=== PATIENT | female | born 1940 | race Caucasian/White ===

== ENCOUNTER 2017-06-16 17:39 | Emergency (ER) | payer MEDICARE, OTHER ==
[~2017-06-16] VITALS: Ht 165.1 cm; Wt 70.3 kg
[~2017-06-16 17:39] MED LIST: ATOR10 PO; BENAML10/40; DAILY MULTIPLE1 EACH; ELLURA200 MG; FIBER CHOICE; HYDCHL25; LOTREL; METF500; NEBI10; NITR100CA PO; Percocet 5-3251 EACH PO
[2017-06-16] MEDS ORDERED: ELIQUIS5 MG PO (18:02)
[2017-06-16] MEDS ORDERED: OMEPRAZOLE DR 40 MG (18:02)
[2017-06-16] MEDS ORDERED: DILT120 (18:02)
[2017-06-16] MEDS ORDERED: ATOR10 (18:02)
[2017-06-16] MEDS ORDERED: HYDCHL25 PO (18:03)
[2017-06-16] MEDS ORDERED: Flovent Disku100 MCG (18:03)
[2017-06-16] MEDS ORDERED: NEBI10 (18:03)
[2017-06-16 18:16] LABS: BASOPHILS ABSOLUTE AUTO 0.04 K/mm3 (0.00-0.23); BASOPHILS PERCENT AUTO 1 % (0-2); EOSINOPHILS ABSOLUTE AUTO 0.13 K/mm3 (0.00-0.68); EOSINOPHILS PERCENT AUTO 2 % (0-6); Hematocrit 44.3 % (33.0-51.0); Hemoglobin 14.9 g/dL (11.5-16.0); IMMATURE GRAN ABSOLUTE AUTO 0.02 K/mm3 (0.00-0.10); IMMATURE GRAN PERCENT AUTO 0 % (0-1); LYMPHOCYTES ABSOLUTE AUTO 2.29 K/mm3 (0.84-5.20); LYMPHOCYTES PERCENT AUTO 27 % (21-46); MONOCYTES ABSOLUTE AUTO 0.91 K/mm3 (0.16-1.47); MONOCYTES PERCENT AUTO 11 % (4-13); Mean Corpuscular HGB 29.5 pg (26.0-34.0); Mean Corpuscular HGB Conc 33.6 g/dL (31.5-36.5); Mean Corpuscular Volume 88 fL (80-100); Mean Platelet Volume 9.1 fL (9.1-12.4); NEUTROPHILS ABSOLUTE AUTO 5.07 K/mm3 (1.96-9.15); NEUTROPHILS PERCENT AUTO 60 % (41-73); Platelet Count 382 K/mm3 (150-400); RDW Coefficient Variation 13.7 % (11.7-14.2); RDW Standard Deviation 44.4 fL (35.1-46.3); Red Blood Cell Count 5.05 M/mm3 (3.80-5.20); White Blood Cell Count 8.46 K/mm3 (4.00-11.30)
[2017-06-16 18:32] LABS: Alanine Aminotransfer (ALT/SGP 48 U/L (12-78); Albumin, Blood 3.6 g/dL (3.4-5.0); Albumin/Globulin Ratio 0.7 (0.8-1.8); Alk Phos 117 U/L (50-136); Anion Gap 11 mmol/L (6-16); Aspartate Aminotrans (AST/SGOT 64 U/L (12-37); Bilirubin, Total 1.3 mg/dL (0.1-1.0); Blood Urea Nitrogen 12 mg/dL (8-24); Bun/Creatinine Ratio 15.1 (12.0-20.0); CO2, Blood 26 mmol/L (21-32); Calcium, Blood 9.2 mg/dL (8.5-10.1); Chloride, Blood 97 mmol/L (98-108); Creatinine, Blood 0.79 mg/dL (0.40-1.00); Globulin, Blood 5.3 g/dL (2.2-4.0); Glomerular Filtration Rate >60 (60-); Glucose, Blood 144 mg/dL (70-99); Potassium, Blood 3.7 mmol/L (3.5-5.5); Sodium, Blood 134 mmol/L (136-145); Total Protein, Blood 8.9 g/dL (6.4-8.2); Troponin I <0.015 ng/mL (0.000-0.040)
[2017-06-16] MEDS ORDERED: Guaifenesin-Co118 ML PO (19:11)
== END 2017-06-16 19:37 | disposition home or self-care (01) ==
LOC: ER 17:39
PROVIDERS: Emergency Medicine
DX: I48.91 Unspecified atrial fibrillation (principal); J06.9 Acute upper respiratory infection, unspecified; Z88.0 Allergy status to penicillin; Z88.1 Allergy status to other antibiotic agents; Z88.8 Allergy status to other drugs, medicaments and biological substances; Z79.899 Other long term (current) drug therapy; Z79.84 Long term (current) use of oral hypoglycemic drugs; E11.9 Type 2 diabetes mellitus without complications; I10 Essential (primary) hypertension
CPT/HCPCS: 71046; 80053; 84484; 85025; 93005; 93010; 96361; 96374; 99283; J7030

== ENCOUNTER → 2017-07-22 | Outpatient (CLI) | payer MEDICARE, OTHER ==
[~2017-07-22] MED LIST changes: +ATOR10; +DILT120; +ELIQUIS5 MG PO; +Flovent Disku100 MCG; +Guaifenesin-Co118 ML PO; +HYDCHL25 PO; +NITR100 PO; +OMEPRAZOLE DR 40 MG
== END | disposition home or self-care (01) ==
LOC: PLD 07:43 → LAB SHORT 07:43
DX: L57.0 Actinic keratosis (principal)
CPT/HCPCS: 88305

== ENCOUNTER → 2017-09-09 | Outpatient (CLI) | payer MEDICARE, OTHER ==
[~2017-09-09] MED LIST changes: -NITR100 PO
== END | disposition home or self-care (01) ==
LOC: LAB SHORT 12:15 → PLD 12:15
DX: R23.4 Changes in skin texture (principal)
CPT/HCPCS: 88305

== ENCOUNTER → 2017-09-23 | Outpatient (CLI) | payer MEDICARE, OTHER | END | disposition home or self-care (01) | LOC: PLD 13:38 → LAB SHORT 13:38 | DX: C44.622 Squamous cell carcinoma of skin of right upper limb, including shoulder (principal) | CPT/HCPCS: 88305 ==

== ENCOUNTER 2017-10-05 16:57 | Emergency (ER) | payer MEDICARE, OTHER ==
[~2017-10-05] VITALS: Ht 165.1 cm; Wt 71.2 kg
[2017-10-05] MEDS ORDERED: NITR100 PO (17:26)
[2017-10-05] MEDS ORDERED: ELLURA200 MG (17:27)
[2017-10-05 18:09] LABS: Source, Urine Voided
[2017-10-05 18:29] LABS: Appearance, Urine Hazy (Clear); Blood, Urine 2+ (Neg); Color, Urine Amber (P-Yellow); Glucose Qualitative, Urine Neg (Neg); Ketones, Urine Neg (Neg); Leukocyte Esterase, Urine 2+ (Neg); Nitrite, Urine Neg (Neg); Protein, Urine 2+ (Neg); Urobilinogen, Urine 3+ (Normal)
[2017-10-05 18:57] LABS: Bilirubin, Urine 2+ (Neg)
[2017-10-05 18:58] LABS: Amorphous Light (0-Heavy); Bacteria Mod /hpf; Hyaline Casts 0-2 /lpf (0-2); Squamous Epithelial Cells Few /hpf (Few)
[2017-10-05 18:59] LABS: Triple Phosphate Crystals Few /hpf
== END 2017-10-05 18:21 | disposition home or self-care (01) ==
LOC: ER 16:57
PROVIDERS: Emergency Medicine
DX: K59.09 Other constipation (principal); R31.9 Hematuria, unspecified; I10 Essential (primary) hypertension; E11.9 Type 2 diabetes mellitus without complications; I48.91 Unspecified atrial fibrillation; Z88.0 Allergy status to penicillin; Z88.1 Allergy status to other antibiotic agents; Z88.8 Allergy status to other drugs, medicaments and biological substances; Z79.899 Other long term (current) drug therapy; Z79.84 Long term (current) use of oral hypoglycemic drugs
CPT/HCPCS: 81001; 87086; 99283

== ENCOUNTER → 2017-10-09 | Outpatient (CLI) | payer MEDICARE, OTHER ==
[~2017-10-09] MED LIST changes: +NITR100 PO
== END | disposition home or self-care (01) ==
LOC: PLD 13:57 → LAB SHORT 13:57
DX: C44.622 Squamous cell carcinoma of skin of right upper limb, including shoulder (principal)
CPT/HCPCS: 88305

== ENCOUNTER → 2018-07-17 | Outpatient (CLI) | payer MEDICARE, OTHER | END | disposition home or self-care (01) | LOC: PLD 08:50 → LAB SHORT 08:50 | DX: D04.62 Carcinoma in situ of skin of left upper limb, including shoulder (principal); D22.5 Melanocytic nevi of trunk | CPT/HCPCS: 88305 ==

== ENCOUNTER → 2019-05-11 | Outpatient (CLI) | payer MEDICARE, OTHER | END | disposition home or self-care (01) | LOC: LAB 18:01 → LAB SHORT 18:01 | DX: R82.79 Other abnormal findings on microbiological examination of urine (principal) | CPT/HCPCS: 87077; 87086; 87186 ==

== ENCOUNTER → 2019-05-28 | Outpatient (CLI) | payer MEDICARE, OTHER | END | disposition home or self-care (01) | LOC: PLD 14:47 → LAB SHORT 14:47 | DX: C44.622 Squamous cell carcinoma of skin of right upper limb, including shoulder (principal) | CPT/HCPCS: 88305 ==

== ENCOUNTER → 2019-07-06 | Outpatient (CLI) | payer MEDICARE, OTHER | END | disposition home or self-care (01) | LOC: LAB 13:36 → LAB SHORT 13:36 | DX: R82.79 Other abnormal findings on microbiological examination of urine (principal) | CPT/HCPCS: 87077; 87086; 87186 ==

== ENCOUNTER → 2019-09-10 | Outpatient (CLI) | payer MEDICARE, OTHER | END | disposition home or self-care (01) | LOC: LAB SHORT 09:50 → LAB 09:50 | DX: R30.0 Dysuria (principal) | CPT/HCPCS: 87077; 87086; 87186 ==

== ENCOUNTER → 2020-05-03 | Outpatient (CLI) | payer MEDICARE, OTHER | LOC: PLD 15:09 → LAB SHORT 15:09 | DX: C44.622 Squamous cell carcinoma of skin of right upper limb, including shoulder (principal); D04.61 Carcinoma in situ of skin of right upper limb, including shoulder | CPT/HCPCS: 88305 ==

== ENCOUNTER → 2020-05-30 | Outpatient (CLI) | payer MEDICARE, OTHER | END | disposition home or self-care (01) | LOC: LAB SHORT 08:23 → PLD 08:23 | DX: D04.61 Carcinoma in situ of skin of right upper limb, including shoulder (principal); L57.8 Other skin changes due to chronic exposure to nonionizing radiation | CPT/HCPCS: 88305 ==

== ENCOUNTER → 2021-06-26 | Outpatient (CLI) | payer MEDICARE, OTHER | END | disposition home or self-care (01) | LOC: LAB SHORT 14:43 → PLD 14:43 | DX: C44.622 Squamous cell carcinoma of skin of right upper limb, including shoulder (principal) | CPT/HCPCS: 88305 ==

== ENCOUNTER → 2021-07-13 | Outpatient (CLI) | payer MEDICARE, OTHER | END | disposition home or self-care (01) | LOC: LAB SHORT 07:39 → PLD 07:39 | DX: C44.622 Squamous cell carcinoma of skin of right upper limb, including shoulder (principal) | CPT/HCPCS: 88305 ==

== ENCOUNTER → 2023-02-11 | Outpatient (CLI) | payer MEDICARE, OTHER ==
[2023-02-11 18:57] LABS: BASOPHILS ABSOLUTE AUTO 0.02 K/mm3 (0.00-0.23); BASOPHILS PERCENT AUTO 0 % (0-2); EOSINOPHILS ABSOLUTE AUTO 0.01 K/mm3 (0.00-0.68); EOSINOPHILS PERCENT AUTO 0 % (0-6); Hematocrit 45.6 % (33.0-51.0); Hemoglobin 15.7 g/dL (11.5-16.0); IMMATURE GRAN ABSOLUTE AUTO 0.03 K/mm3 (0.00-0.10); IMMATURE GRAN PERCENT AUTO 0 % (0-1); LYMPHOCYTES ABSOLUTE AUTO 2.16 K/mm3 (0.84-5.20); LYMPHOCYTES PERCENT AUTO 29 % (21-46); MONOCYTES PERCENT AUTO 9 % (4-13); Mean Corpuscular HGB 30.7 pg (26.0-34.0); Mean Corpuscular HGB Conc 34.4 g/dL (31.5-36.5); Mean Corpuscular Volume 89 fL (80-100); Mean Platelet Volume 9.5 fL (9.1-12.4); NEUTROPHILS ABSOLUTE AUTO 4.67 K/mm3 (1.96-9.15); NEUTROPHILS PERCENT AUTO 62 % (41-73); Platelet Count 358 K/mm3 (150-400); RDW Coefficient Variation 13.8 % (11.7-14.2); RDW Standard Deviation 44.9 fL (35.1-46.3); Red Blood Cell Count 5.12 M/mm3 (3.80-5.20); White Blood Cell Count 7.59 K/mm3 (4.00-11.30)
[2023-02-11 19:17] LABS: Albumin, Blood 3.8 g/dL (3.4-5.0); Albumin/Globulin Ratio 0.8 (0.8-1.8); Bilirubin, Total 1.5 mg/dL (0.1-1.0); Bun/Creatinine Ratio 7.6 (12.0-20.0); Creatinine, Blood 1.32 mg/dL (0.40-1.00); Globulin, Blood 4.6 g/dL (2.2-4.0); Magnesium, Blood 1.9 mg/dL (1.6-2.4); Potassium, Blood 3.4 mmol/L (3.5-5.5); Total Protein, Blood 8.4 g/dL (6.4-8.2)
== END | disposition home or self-care (01) ==
LOC: LAB 18:49 → LAB SHORT 18:49
PROVIDERS: Physician Assistant
DX: I48.91 Unspecified atrial fibrillation (principal); R06.00 Dyspnea, unspecified
CPT/HCPCS: 80053; 83735; 83880; 84484; 85025

== ENCOUNTER 2023-02-25 18:30 | Inpatient (IN) | payer MEDICARE, OTHER ==
[~2023-02-25] VITALS: Ht 162.6 cm; Wt 70.5 kg
[~2023-02-25 18:30] MED LIST changes: -ATOR10; +NEBI10 PO
[2023-02-25 19:08] LABS: BASOPHILS ABSOLUTE AUTO 0.15 K/mm3 (0.00-0.23); BASOPHILS PERCENT AUTO 1 % (0-2); EOSINOPHILS ABSOLUTE AUTO 0.36 K/mm3 (0.00-0.68); EOSINOPHILS PERCENT AUTO 2 % (0-6); Hematocrit 44.5 % (33.0-51.0); Hemoglobin 15.1 g/dL (11.5-16.0); IMMATURE GRAN ABSOLUTE AUTO 0.21 K/mm3 (0.00-0.10); IMMATURE GRAN PERCENT AUTO 1 % (0-1); LYMPHOCYTES ABSOLUTE AUTO 0.61 K/mm3 (0.84-5.20); LYMPHOCYTES PERCENT AUTO 3 % (21-46); MONOCYTES ABSOLUTE AUTO 1.67 K/mm3 (0.16-1.47); MONOCYTES PERCENT AUTO 8 % (4-13); Mean Corpuscular HGB 30.3 pg (26.0-34.0); Mean Corpuscular HGB Conc 33.9 g/dL (31.5-36.5); Mean Corpuscular Volume 89 fL (80-100); Mean Platelet Volume 10.7 fL (9.1-12.4); NEUTROPHILS ABSOLUTE AUTO 18.19 K/mm3 (1.96-9.15); NEUTROPHILS PERCENT AUTO 86 % (41-73); Platelet Count 344 K/mm3 (150-400); RDW Coefficient Variation 13.9 % (11.7-14.2); RDW Standard Deviation 45.1 fL (35.1-46.3); Red Blood Cell Count 4.99 M/mm3 (3.80-5.20); White Blood Cell Count 21.19 K/mm3 (4.00-11.30)
[2023-02-25 19:52] LABS: Albumin, Blood 2.2 g/dL (3.4-5.0); Albumin/Globulin Ratio 0.5 (0.8-1.8); Bilirubin, Total 1.7 mg/dL (0.1-1.0); Bun/Creatinine Ratio 36.8 (12.0-20.0); Calcium, Blood 8.3 mg/dL (8.5-10.1); Creatinine, Blood 1.36 mg/dL (0.40-1.00); Globulin, Blood 4.5 g/dL (2.2-4.0); Total Protein, Blood 6.7 g/dL (6.4-8.2)
[2023-02-25 20:08] LABS: Source, Urine Straight Cath
[2023-02-25 20:11] LABS: Appearance, Urine Cloudy (Clear); Bilirubin, Urine Neg (Neg); Blood, Urine 2+ (Neg); Color, Urine Yellow (P-Yellow); Glucose Qualitative, Urine Neg (Neg); Ketones, Urine 1+ (Neg); Leukocyte Esterase, Urine 3+ (Neg); Nitrite, Urine Neg (Neg); Protein, Urine 2+ (Neg); Urobilinogen, Urine 1+ (Normal)
[2023-02-25 20:23] LABS: Amorphous Light (0-Heavy); Bacteria Many /hpf; Red Blood Cells, Urine 0-2 /hpf (0-2); Squamous Epithelial Cells Not Seen /hpf (Few); White Blood Cells, Urine TNTC /hpf (0-5)
[2023-02-25 20:41] LABS: Base Excess Venous -7.1 mmol/L; Bicarbonate Venous 18.3 mmol/L (24.0-30.0); PCO2 Venous 42.4 mmHg (38-42); pH Blood Venous 7.27 (7.34-7.37)
[2023-02-25] MEDS ORDERED: DILT180 PO (22:28)
[2023-02-25 22:44] VITALS: BP 127/80
[2023-02-26 04:20] VITALS: BP 105/81
[2023-02-26 05:06] LABS: BASOPHILS ABSOLUTE AUTO 0.09 K/mm3 (0.00-0.23); BASOPHILS PERCENT AUTO 1 % (0-2); EOSINOPHILS ABSOLUTE AUTO 0.01 K/mm3 (0.00-0.68); EOSINOPHILS PERCENT AUTO 0 % (0-6); Hematocrit 40.9 % (33.0-51.0); Hemoglobin 13.9 g/dL (11.5-16.0); IMMATURE GRAN ABSOLUTE AUTO 0.28 K/mm3 (0.00-0.10); IMMATURE GRAN PERCENT AUTO 1 % (0-1); LYMPHOCYTES ABSOLUTE AUTO 0.82 K/mm3 (0.84-5.20); LYMPHOCYTES PERCENT AUTO 4 % (21-46); MONOCYTES ABSOLUTE AUTO 1.76 K/mm3 (0.16-1.47); MONOCYTES PERCENT AUTO 9 % (4-13); Mean Corpuscular HGB 30.1 pg (26.0-34.0); Mean Corpuscular Volume 89 fL (80-100); Mean Platelet Volume 9.9 fL (9.1-12.4); NEUTROPHILS ABSOLUTE AUTO 16.49 K/mm3 (1.96-9.15); NEUTROPHILS PERCENT AUTO 85 % (41-73); Platelet Count 304 K/mm3 (150-400); RDW Coefficient Variation 13.7 % (11.7-14.2); RDW Standard Deviation 44.1 fL (35.1-46.3); Red Blood Cell Count 4.62 M/mm3 (3.80-5.20); White Blood Cell Count 19.45 K/mm3 (4.00-11.30)
--- NOTE | 2023-02-26 05:22 | NUR ---
SHIFT SUMMARY PT ALERT AND ORIENTED X 4. TRANSFERRED FROM ED DURING SHIFT. PT STATED ONCE TRANSFERRED SHE WANTED TO BE FULL CODE AND WANTED TO SPEAK WITH PALLIATIVE CARE REGARDING CODE STATUS. MD AWARE AND PT CHANGED TO FULL CODE. PT WEAK, 2 PERSON ASSIST UP TO COMMODE. PT CONTINENT OF URINE AND BOWEL. PT CALLS FREQUNTLY FOR REPOSITION ASSISTANCE. BED ALARM IN PLACE D/T PT'S FREQUENT FALLS AT HOME. PT'S DAUGHTER LIVES IN [place] AND IS IN A CARE FACILITY IN [place]. PT HAS NEIGHBOR THAT ASSISTS PT WITH ADL'S NEEDED. VSS. PT ON TELE, AFIB IN 80'S-90'S. O2 ABOVE 95% ON RA. BP STABLE. NO CP OR PRESSURE. WILL CONT TO MONITOR UNTIL REPORT GIVEN TO DAYSHIFT RN.
[2023-02-26 05:52] LABS: Albumin, Blood 2.2 g/dL (3.4-5.0); Albumin/Globulin Ratio 0.5 (0.8-1.8); Beta-hydroxybutyrate 15.6 mg/dL (0.2-2.8); Bilirubin, Direct 0.9 mg/dL (0.0-0.3); Bilirubin, Total 1.6 mg/dL (0.1-1.0); Bun/Creatinine Ratio 34.7 (12.0-20.0); Calcium, Blood 8.8 mg/dL (8.5-10.1); Creatinine, Blood 1.5 mg/dL (0.40-1.00); Globulin, Blood 4.4 g/dL (2.2-4.0); Magnesium, Blood 2.3 mg/dL (1.6-2.4); Potassium, Blood 4.5 mmol/L (3.5-5.5); Total Protein, Blood 6.6 g/dL (6.4-8.2)
[2023-02-26 07:40] VITALS: BP 118/66
[2023-02-26 14:53] VITALS: BP 132/78
--- NOTE | 2023-02-26 18:39 | NUR ---
SHIFT SUMMARY: PT A&O X4. PLEASANT AND COOPERATIVE WITH CARE. ON TELE RUNNING AFIB. 1P ASSIST W/FWW. ADA DIET. NO COVERAGE NEEDED. IV ABX PROVIDED AND TOLERATING WELL. NO C/O PAIN. PT REQUESTING FREQUENT TURNS. WORKED WITH PT/OT THIS SHIFT. POSSIBLE D/C TOMORROW. 2ND LITER LR INFUSING. CALL LIGHT IN REACH. BED IN LOWEST POSITION.
[2023-02-26 19:29] VITALS: BP 147/84
--- NOTE | 2023-02-27 05:46 | NUR ---
PT IS A&O4 MILDLY FORGETFUL AT NIGHT, UP WITH 1 TO THE BSC, RA, NO COMPLAINTS OF PAIN OVERNIGHT OR ACUTE EVENTS, CONTINUE POC
[2023-02-27 07:33] VITALS: BP 133/87
[2023-02-27 08:37] LABS: BASOPHILS ABSOLUTE AUTO 0.07 K/mm3 (0.00-0.23); BASOPHILS PERCENT AUTO 1 % (0-2); EOSINOPHILS ABSOLUTE AUTO 0.02 K/mm3 (0.00-0.68); EOSINOPHILS PERCENT AUTO 0 % (0-6); Hematocrit 42.2 % (33.0-51.0); Hemoglobin 14.3 g/dL (11.5-16.0); IMMATURE GRAN ABSOLUTE AUTO 0.28 K/mm3 (0.00-0.10); IMMATURE GRAN PERCENT AUTO 2 % (0-1); LYMPHOCYTES ABSOLUTE AUTO 0.83 K/mm3 (0.84-5.20); LYMPHOCYTES PERCENT AUTO 6 % (21-46); MONOCYTES ABSOLUTE AUTO 1.21 K/mm3 (0.16-1.47); MONOCYTES PERCENT AUTO 9 % (4-13); Mean Corpuscular HGB 29.9 pg (26.0-34.0); Mean Corpuscular HGB Conc 33.9 g/dL (31.5-36.5); Mean Corpuscular Volume 88 fL (80-100); NEUTROPHILS ABSOLUTE AUTO 11.38 K/mm3 (1.96-9.15); NEUTROPHILS PERCENT AUTO 83 % (41-73); Platelet Count 315 K/mm3 (150-400); RDW Coefficient Variation 13.7 % (11.7-14.2); RDW Standard Deviation 44.7 fL (35.1-46.3); Red Blood Cell Count 4.78 M/mm3 (3.80-5.20); White Blood Cell Count 13.79 K/mm3 (4.00-11.30)
[2023-02-27] MEDS ORDERED: VISBIOME 112.51 EACH PO (11:10)
[2023-02-27] MEDS ORDERED: BASAGLAR K100 UNIT/1 SC (11:11)
[2023-02-27] MEDS ORDERED: CEPH500 PO (11:12)
--- NOTE | 2023-02-27 12:56 | NUR ---
DISCHARGE: PT D/C @1237 VIA WHEELCHAIR WITH DAUGHTER. HOME HEALTH CALLED PT PRIOR TO D/C STATING THEY WOULD BE OUT IN "A COUPLE DAYS." DAUGHTER IN TOWN FROM [place] TO HELP PT UNTIL HH. MEDICATIONS FAXED TO [facility]. PT GOING TO TALK TO PRIMARY ABOUT DIABETES MEDICATION (INSULIN VS METFORMIN). EXPLAINED NEW MEDICATIONS WITH PT. TELE SENT BACK. IV IN LAC AND LHA REMOVED W/O COMPLICATIONS.
== END 2023-02-27 12:43 | disposition home health service (06) | DRG 872 ==
LOC: ER 18:30 → MEDS 18:31 → ENPENDDIS 02-27 10:20 → MEDS 02-27 12:43
PROVIDERS: Internal Medicine; Student in an Organized Health Care Education/Training Program; ADMIT Student in an Organized Health Care Education/Training Program
DX: A41.9 Sepsis, unspecified organism (principal); N39.0 Urinary tract infection, site not specified; N17.9 Acute kidney failure, unspecified; E87.21 Acute metabolic acidosis; E87.1 Hypo-osmolality and hyponatremia; I48.91 Unspecified atrial fibrillation; R65.20 Severe sepsis without septic shock; Z66 Do not resuscitate; N18.30 Chronic kidney disease, stage 3 unspecified; E86.0 Dehydration; E11.22 Type 2 diabetes mellitus with diabetic chronic kidney disease; T38.3X5A Adverse effect of insulin and oral hypoglycemic [antidiabetic] drugs, initial encounter; I12.9 Hypertensive chronic kidney disease with stage 1 through stage 4 chronic kidney disease, or unspecified chronic kidney disease; E80.6 Other disorders of bilirubin metabolism; Z88.0 Allergy status to penicillin; Z88.1 Allergy status to other antibiotic agents; Z88.8 Allergy status to other drugs, medicaments and biological substances; Z79.01 Long term (current) use of anticoagulants; Z79.84 Long term (current) use of oral hypoglycemic drugs; Z91.81 History of falling; Z60.2 Problems related to living alone
CPT/HCPCS: 36415; 71046; 80053; 81001; 82010; 82248; 82803; 82947; 83605; 83735; 83880; 84484; 85025; 93005; 93010; 96361; 96365; 96366; 97116; 97129; 97162; 97165; 97530; 99285-25; A9270; G0378; J0696; J7030; J7120